=== PATIENT | female | born 1935 | race Caucasian/White ===

== ENCOUNTER → 2017-09-24 08:00 | Outpatient (CLI) | payer MEDICARE, SELFPAY ==
--- NOTE | 2017-09-24 08:04 | AS_ITS ---
Renal Arterial Duplex Indications: 405.91 Unspecified renovascular hypertension. IMPRESSIONS 1. Normal bilateral renal artery evaluation. 2. Elevated velocities at the distal left renal artery are attributed to a tortuous vessel. 3. Incidental findings: Two cysts are visualized at the left kidney, one measuring 3.4 X 3.0 cm and second measuring 5.3 X 6.8 cm. Complete renal arterial duplex. Duplex scan and Doppler flow study including spectral analysis, color and veras scale imaging. Height: Height: 152.4cm. Height: 60in. Weight: Weight: 65.8kg. Weight: 144.7lb. Body mass index: BMI: 28.3kg/m^2. Body surface area: BSA: 1.69m^2. Location: Vascular laboratory. Patient status: Outpatient. Findings: Aorta mid : 1.74 X 1.65 cm. No evidence of a dilatation or AAA. Right kidney measures 9.8 X 4.9 cm. Left kidney measures 10.1 X 4.8 cm. Normal kidney measurements, bilaterally. Tables: Arterial flow: + +-------+--------+ Location V sys V ed + +-------+--------+ Right renal - proximal 155cm/s 38.9cm/s + +-------+--------+ Right renal - mid 177cm/s 22.5cm/s + +-------+--------+ Right renal - distal 187cm/s -------- + +-------+--------+ Left renal - proximal 153cm/s 33.9cm/s + +-------+--------+ Left renal - mid 187cm/s 28cm/s + +-------+--------+ Left renal - distal 285cm/s 39.8cm/s + +-------+--------+ Left renal - origin 162cm/s 35.4cm/s + +-------+--------+ Right renal - origin 176cm/s 34.2cm/s + +-------+--------+ Aorta - mid 111cm/s -------- + +-------+--------+ Velocity ratios: + +-----+ V sys + +-----+ Right renal/aortic 1.7 + +-----+ Left renal/aortic 2.6 + +-----+ (Report amended ) Electronically signed by: Stevie Watson [id number]
--- NOTE | 2017-09-24 08:07 | CA_ITS ---
PROCEDURE: 2-D M-mode and color Doppler study INDICATIONS FOR THE TEST: Chest pain COPD Heart Murmur Tobacco Smoking Palpitations Fatigue Syncope Edema HypertensionxDiabetes Mellitus Rheumatic Fever SOBxDOE Obesity Hyperlipidemiax Family History HD Additional History CAD PATIENT INFORMATION HEIGHT: 5'0'' WEIGHT: 145 GENDER: Female B/P: 142/73 2-D/M-MODE INTERPRETATION: 2-D MEASUREMENTS OBSERVED VALUES IN CMS Right Ventricular Dimension (RVDd) 2.1 Interventricular Septum (Thickness)(IVsd) 1.2 Left Ventricular Internal Dimensions(LVIDd) 3.5 Left Ventricular Posterior Wall (Thickness)(LVPWd) 1.0 Aortic Root 3.0 Aortic Cusp Separation 1.5 Left Atrial Dimensions (LAD) 3.2 2D 1. Left atrium is qualitatively mildly enlarged, left ventricle is normal size, mild concentric left ventricular hypertrophy, visually estimated ejection fraction 55% with no obvious regional wall motion abnormality. 2. The right atrium and right ventricle are mildly enlarged with normal contractility. 3. The aortic valve is thickened and calcified, leaflet continue to display mobility. 4. The mitral and tricuspid valve leaflets are minimally thickened. 5. The pulmonic valve is poorly visualized 6. No significant pericardial effusion noted. DOPPLER INTERROGATION: Doppler interrogation of the aortic, mitral and tricuspid valvular presence of mild mitral and moderate tricuspid regurgitation, calculated right ventricular systolic pressure is 71 mmHg consistent with severe pulmonary hypertension, diastolic parameters are inconclusive. Inferior vena cava is normal size with normal collapse. CONCLUSION: 1. Mild biatrial enlargement, normal left ventricular size, mild concentric left ventricular hypertrophy, visually estimated ejection fraction 55% with no obvious regional wall motion abnormality, diastolic parameters are inconclusive. 2. Mildly enlarged right ventricle with normal contractility. 3. Thickened and calcified aortic valve without significant aortic stenosis or aortic insufficiency. 4. Mild mitral and moderate tricuspid regurgitation noted, calculated right ventricular systolic pressure is 71 mmHg consistent with severe pulmonary hypertension. 5. No significant pericardial effusion noted.
[2017-09-24 09:43] LABS: Basophils # 0.1 K/mm3 (0-0.2); Basophils % 0.9 % (0.1-2.0); Eosinophils # 0.9 K/mm3 (0.0-0.4); Eosinophils % 9.8 % (0.1-12.0); Hematocrit 40.5 % (37.0-47.0); Hemoglobin 12.4 g/dL (12.2-16.2); Lymphocytes % 22.1 K/mm3 (10-50); Mean Corpuscular HGB Conc 30.6 g/dL (31.8-35.4); Mean Corpuscular Volume 78.5 fl (81-99); Mean Platelet Volume 7.9 fl (7.4-10.4); Monocytes # 0.6 K/mm3 (0.1-1.0); Monocytes % 6.3 % (1.7-9.3); Neutrophils # 5.4 K/mm3 (1.8-7.8); Neutrophils % 60.8 % (37.0-80.0); Platelet Count 248 K/mm3 (142-424); Red Blood Count 5.16 M/mm3 (4.20-5.40); Red Cell Distribution Width 15.7 % (11.5-17.5)
[2017-09-24 10:20] LABS: Anion Gap 9.5 mEq/L (5-15); Blood Urea Nitrogen 20 mg/dL (7-18); Carbon Dioxide 32 mmol/L (21.0-32.0); Chloride 105 mmol/L (98-107); Estimated Glomerular Filt Rate 60 ml/min (>60); Free T4 (Free Thyroxine) 0.98 ng/dl (0.76-1.46); GFR (African American) 73 ML/MIN (>60); Glucose 122 mg/dL (74-106); Potassium 4.5 mmoL/L (3.5-5.1); Sodium 142 mmol/L (136-145); Thyroid Stimulating Hormone 1.14 uIU/ml (0.358-3.740)
== END ==
PROVIDERS: Family Provider Family Medicine; PCP Family Medicine; Visit Provider Internal Medicine
DX: I25.10 Atherosclerotic heart disease of native coronary artery without angina pectoris (principal); I27.20 Pulmonary hypertension, unspecified; I10 Essential (primary) hypertension; Z95.5 Presence of coronary angioplasty implant and graft; I51.9 Heart disease, unspecified; E78.5 Hyperlipidemia, unspecified; J44.9 Chronic obstructive pulmonary disease, unspecified; E11.9 Type 2 diabetes mellitus without complications; R06.02 Shortness of breath
CPT/HCPCS: 36415; 80048; 84439; 84443; 85025; 93306; 93976

== ENCOUNTER → 2020-01-17 13:36 | Outpatient (CLI) | payer MEDICARE, MEDICAID, SELFPAY | PROVIDERS: PCP Physician Assistant; Visit Provider Urology | DX: R00.2 Palpitations; I25.10 Atherosclerotic heart disease of native coronary artery without angina pectoris; E78.5 Hyperlipidemia, unspecified; I27.20 Pulmonary hypertension, unspecified; I51.89 Other ill-defined heart diseases; I67.2 Cerebral atherosclerosis; R06.00 Dyspnea, unspecified; Z95.5 Presence of coronary angioplasty implant and graft | CPT/HCPCS: 93270 ==

== ENCOUNTER → 2020-01-23 13:05 | Outpatient (CLI) | payer MEDICARE, MEDICAID, SELFPAY ==
--- NOTE | 2020-01-23 13:07 | CA_ITS ---
APPROVED REPORT EXAM: Comprehensive 2D, Doppler, and color-flow Echocardiogram Manufacturing Director: Becky Bond RVT Ht: 5 ft 0 in Wt: 161lbs BSA: 1.70 BP: 126/66 mmHg Indications: PALPS,COPD,OGLESBY,STENTS,PHTN,DD,CHF,DIZZINESS,HTN,HLD,DM 2D Dimensions LVOT 1.65 cm (M/F) 1.5-2.5 M-Mode Dimensions LVDd 3.30 cm (3.5-5.7) LVDs 1.67 cm (3.5-5.7) IVSd 1.21 cm (0.6-1.1) PWd 1.10 cm (0.6-1.1) EF (Teich) 81.90% FS 49.40% EDV (Teich) 44.10 mL ESV (Teich) 8.00 mL LV Diastology E/A Ratio 1.79 Mitral Valve MV A Velocity 64.00 (40-130 cm/s) Left Ventricle Left atrium is normal size, left ventricle is normal size, there is no concentric left ventricular hypertrophy, visually estimated ejection fraction 55% with no regional wall motion abnormality, diastolic parameters are within normal range. Right Ventricle Right atrium and right ventricle are mildly enlarged with normal contractility. Aortic Valve Aortic valve is minimally thickened and fibrosed, there is no aortic stenosis or aortic insufficiency. Mitral Valve Mitral valve leaflets are minimally thickened, there is mild mitral regurgitation. Tricuspid Valve Tricuspid valve is grossly normal, there is mild tricuspid regurgitation, calculated right ventricular systolic pressure is 49 mmHg. Pulmonic Valve Pulmonic valve is poorly visualized. Great Vessels Aortic root is normal size. Pericardium No significant pericardial effusion noted. Conclusion 1. Normal left ventricular size, preserved left ventricular systolic function, visually estimated ejection fraction 55% with no regional wall motion abnormality, diastolic parameters are within normal range. 2. Mildly enlarged right atrium and right ventricle, contractility right ventricle is normal. 3. Mild mitral and tricuspid regurgitation, calculated right ventricular systolic pressure is 49 mmHg. 4. No significant pericardial effusion noted. Electronically signed by : Amado Unger, 01/23/2020 18:01:56
--- NOTE | 2020-01-23 13:07 | CA_ITS ---
APPROVED REPORT Environmental Sustainability Manager: CT Laterality: Bilateral Study Quality: AdequateGood Indications: faye Risk Factors Hypertension: Hyperlipidemia Diabetes CAD Doppler Spectral Velocity Analysis ECA (R) 102.50/6.70 cm/s ECA (L) 91.30/8.20 cm/s dICA (R) 82.30/17.20 cm/s dICA (L) 76.30/19.50 cm/s Marquise (R) 72.60/13.50 cm/s Marquise (L) 88.30/21.00 cm/s pICA (R) 86.00/18.00 cm/s pICA (L) 82.30/15.70 cm/s pCCA (R) 73.70/11.10 cm/s dCCA (L) 68.10/11.20 cm/s Vert (R) 35.30/9.10 cm/s pCCA (L) 71.10/10.50 cm/s Vert (L) 89.00/14.20 cm/s Findings Duplex evaluation demonstrates stenosis of the right proximal internal carotid artery <20% with PSV <140 cm/sec, EDV <100 cm/sec, and IC/CC Ratio <4.0. Duplex evaluation demonstrates stenosis of the left proximal internal carotid artery in the range of 20-49% with PSV <140 cm/sec, EDV <100 cm/sec, and IC/CC Ratio <4.0. Duplex evaluation demonstrates antegrade flow of the bilateral Vertebral Arteries. Conclusion Duplex evaluation demonstrates stenosis of the right proximal internal carotid artery <20% with PSV <140 cm/sec, EDV <100 cm/sec, and IC/CC Ratio <4.0. Duplex evaluation demonstrates stenosis of the left proximal internal carotid artery in the range of 20-49% with PSV <140 cm/sec, EDV <100 cm/sec, and IC/CC Ratio <4.0. Duplex evaluation demonstrates antegrade flow of the bilateral Vertebral Arteries. Electronically signed by : Stevie Watson MD 01/23/2020 19:02:07
== END ==
PROVIDERS: PCP Physician Assistant; Visit Provider Urology
DX: E78.5 Hyperlipidemia, unspecified (principal); I10 Essential (primary) hypertension; I25.10 Atherosclerotic heart disease of native coronary artery without angina pectoris; I27.20 Pulmonary hypertension, unspecified; I67.2 Cerebral atherosclerosis; R00.2 Palpitations; R06.00 Dyspnea, unspecified; Z95.5 Presence of coronary angioplasty implant and graft; R42 Dizziness and giddiness
CPT/HCPCS: 93306; 93880

== ENCOUNTER → 2020-03-27 13:37 | Outpatient (CLI) | payer MEDICARE, SELFPAY ==
[2020-03-27 14:37] LABS: Chloride 94 mmol/L (98-107); Potassium 4.8 mmoL/L (3.5-5.1); Sodium 133 mmol/L (136-145)
[2020-03-27 14:40] LABS: Anion Gap 12.8 mEq/L (5-15); Blood Urea Nitrogen 20 mg/dl (7-17); Carbon Dioxide 31 mmol/L (22.0-30.0); Estimated Glomerular Filt Rate 60 ml/min (>60); GFR (African American) 72 ML/MIN (>60)
[2020-03-27 14:41] LABS: Calcium 9.9 mg/dl (8.4-10.2); Glucose 388 mg/dl (74-100)
== END ==
PROVIDERS: Visit Provider Urology
DX: E78.5 Hyperlipidemia, unspecified (principal); I10 Essential (primary) hypertension; I25.10 Atherosclerotic heart disease of native coronary artery without angina pectoris; I27.20 Pulmonary hypertension, unspecified; I67.2 Cerebral atherosclerosis; R00.2 Palpitations; R06.00 Dyspnea, unspecified; R42 Dizziness and giddiness; R60.0 Localized edema; Z95.5 Presence of coronary angioplasty implant and graft
CPT/HCPCS: 36415; 80048